=== PATIENT | female | born 2005 | race Caucasian/White ===

== ENCOUNTER 2025-05-17 18:51 | Emergency (ER) | payer SELFPAY ==
[2025-05-17 18:53] VITALS: BP 144/125; PULSE 86; RESP 14; TEMP 36.9; O2SAT 95; BMI 40.7
--- NOTE | 2025-05-17 19:31 | EDS_ITS ---
HPI History of Present Illness Chief Complaint: Syncope Detail of Chief Complaint: Passed out walking to restroom Informant: patient Onset/Context/Timing Onset: Today and Hours Context: Sudden Onset Timing: Intermittent Quality: Syncopal episode Location: Work Current Severity: Mild Maximum Severity: Severe Worsened by: Nothing per patient, little to no recall Relieved by: Not applicable Associated Symptoms Associated Symptoms: Nauseousness Narrative Narrative: Patient is a 19-year-old female. She presents after having syncope and collapse. She was at work. She works at [employer]. She states she is in air conditioned environment. She was sitting. She got up to use the restroom. She passed out. She states she woke up on the floor. She denies headache. Denies double vision blurred vision loss of vision. Eyes renal ears decreased hearing. No trouble speech or swallowing. Denies neck pain. She does complain of some vague chest discomfort. She also reports some mild shortness of breath. She denies rhinorrhea, congestion, postnasal drainage or sore throat. She denies cough. She denies history of VTE. She denies leg pain, swelling discoloration. She is on no hormonal therapy. She is not sexually active. She is on no control. Her last normal menses was 2 weeks ago. She denies dysuria, frequency, urgency or hematuria. She denies black or maroon-colored stool. She denies blood in her urine. She seems anxious. She was tearful when I entered the room. She is on a vitamin. She is on no other medicine. Prior similar symptoms: No Recent Illness/Hospitalization: No PFSH PFSH Medical History Asthma Medical History no medical history Home Medications ?Medication ?Instructions ?Recorded ?Last Taken ?Type mecobalamin (vitamin B12) 1,000 1,000 mcg PO DAILY 02/05 Unknown History mcg chewable tablet (B12 Active) Allergy/AdvReac Type Severity Reaction Status Date / Time No Known Allergies Allergy Verified 05/17/25 18:52 Social History Smoking Status: Never smoker ROS ROS ED Constitutional Constitutional ED: Denies chills, fever(s) or subjective Eyes Eyes: Denies blurry vision, change in vision or diplopia ENT ENT ED: Denies ear pain, rhinorrhea or sore throat Cardiovascular Cardiovascular: Denies chest pain, palpitations or racing heartbeat Respiratory/Chest Respiratory/Chest: Denies cough, dyspnea or dyspnea on exertion Gastrointestinal Gastrointestinal: Reports nausea; Denies abdominal pain, melena or vomiting Genitourinary Genitourinary ED: Denies dysuria, hematuria or urinary frequency Musculoskeletal Musculoskeletal: Denies arthralgias or myalgias Integumentary Denies Abrasions Neurologic Neurologic: Reports paresthesias RUE, RLE, LUE and LLE and other Details: There is no perioral numbness. ; Denies headache(s) Psychiatric Psychiatric: Reports anxiety; Denies depression Endocrine Endocrinology: Denies cold intolerance or heat intolerance Hematologic/Lymphatic Hematologic/Lymphatic: Reports systems reviewed and no addt'l complaints, except as documented EXAM Physical Exam Const Vital Signs: 05/17/25 18:53 05/17/25 19:12 05/17/25 19:46 Temperature 98.5 F Temperature Source Oral Pulse Rate 86 78 Pulse Rate [Lying] Pulse Rate [Sitting (for 1 minute prior to obtaining)] Pulse Rate [Standing (for 1 minute prior to obtaining)] Respiratory Rate 14 18 Respiratory Effort Normal Non-Labored Respiratory Pattern Normal Blood Pressure 144/125 H 131/72 H Blood Pressure [Lying] Blood Pressure [Sitting (for 1 minute prior to obtaining)] Blood Pressure [Standing (for 1 minute prior to obtaining)] Blood Pressure Mean 131 91 Blood Pressure Mean [Lying] Blood Pressure Mean [Sitting (for 1 minute prior to obtaining)] Blood Pressure Mean [Standing (for 1 minute prior to obtaining)] Pulse Ox 95 98 Oxygen Delivery Method Room Air 05/17/25 20:01 05/17/25 20:01 05/17/25 21:00 Temperature Temperature Source Pulse Rate 75 70 Pulse Rate [Lying] 75 Pulse Rate [Sitting (for 1 minute prior to obtaining)] 77 Pulse Rate [Standing (for 1 minute prior to obtaining)] 88 Respiratory Rate 15 18 Respiratory Effort Respiratory Pattern Blood Pressure 126/62 H 126/79 H Blood Pressure [Lying] 128/62 H Blood Pressure [Sitting (for 1 minute prior to obtaining)] 126/88 H Blood Pressure [Standing (for 1 minute prior to obtaining)] 132/82 H Blood Pressure Mean 83 94 Blood Pressure Mean [Lying] 84 Blood Pressure Mean [Sitting (for 1 minute prior to obtaining)] 100 Blood Pressure Mean [Standing (for 1 minute prior to obtaining)] 98 Pulse Ox 98 98 Oxygen Delivery Method Room Air Positive well nourished and well developed General Appearance ED: well developed and NAD; Negative for cyanotic, diaphoretic or pallor HEENT Reports moist mucous membranes HEENT Narrative: Head is atraumatic normocephalic. There is no clinical signs of a skull fracture. There is no septal deviation hematoma. No TMJ tenderness right or left. There is no dental trauma. Eyes PERRL and EOMs intact bilaterally Eyes Narrative: There is no subconjunctival hemorrhage. General Eye ED: Negative for pale conjunctiva or scleral icterus Neck no lymphadenopathy, supple and no JVD Neck Narrative: There is no midline posterior neck pain. Chest Wall palpation of chest normal Resp normal respiratory effort and clear to auscultation bilaterally Cardio regular rate, regular rhythm, S1 normal heart sound, S2 normal heart sound and no murmurs GI normal to inspection, nondistended, normoactive bowel sounds, non-tender, non- distended and no masses; Negative for hepatosplenomegaly Back/Spine Back/Spine Narrative: Inspection is normal. Extremity normal to inspection Extremity Narrative: There is no asymmetry, swelling, discoloration, leg vein distention, palpable cords times on the distribution deep venous system. Neuro oriented x3, CN's II-XII intact bilaterally and no sensory deficits noted Neuro Narrative: There is no dysmetria. There is no clonus. Sensorium / Orientation: alert Motor Exam: strength 5/5 throughout Psych Mood & Affect: anxious Skin no rashes or lesions noted, no wounds and skin turgor normal General Skin Exam: elasticity normal; Negative for jaundice or pallor MDM MDM MDM Narrative Medical decision making narrative: EKG was obtained because she complained of vague chest pain. Patient is PERC negative and Wells score is less than 3. History and physical is not consistent with aortic dissection. History is not consistent with pneumothorax, spontaneous. History is not consistent with infectious process. Will obtain EKG to assess for cardiac ischemia. Will place on monitor to assess for any dysrhythmia. Lab Data Attestation: I reviewed the patient's lab results. Lab results narrative: CBC is unremarkable. Electrolyte panel is normal. Labs: Laboratory Results - last 24 hr 05/17/25 18:58 WBC 8.2 RBC 5.16 Hgb 13.9 Hct 41.8 MCV 81.0 MCH 26.9 L MCHC 33.3 RDW Std Deviation 37.4 RDW Coeff of Nikolas 12.9 Plt Count 264 MPV 10.1 Sodium 140 Potassium 3.9 Chloride 105 Carbon Dioxide 23.0 Anion Gap 12 BUN 9 Creatinine 0.76 Estim Creat Clear Calc 147.81 Est GFR (MDRD) Non-Af 115 BUN/Creatinine Ratio 11.9 Glucose 91 Calcium 9.7 EKG Initial EKG: Attestation: I personally reviewed and interpreted this EKG as follows: Interpretation: Sinus Rhythm (Rate is 84. EKG is normal. [place] interval 246 ms. QRS duration 92 ms. QT duration 280 ms. [place] is normal) Treatment and Re-Evaluation :: Mookie deformity of her orthostatic vitals. My numbers are negative. She apparently swayed and was symptomatic. Comments:: Patient was watched on the monitor. She had no dysrhythmia, PACs or PVCs. Mother informing this has happened before. She is scheduled to see a senior business consultant. Discharge Plan Triage Chief Complaint: Syncope ED Provider: Geovanni Saucedo Dx/Rx/DC Orders Clinical Impression: Syncope and collapse, Orthostatic lightheadedness Prescriptions: No Action mecobalamin (vitamin B12) [B12 Active] 1,000 mcg tablet,chewable 1,000 mcg PO DAILY Stand Alone Forms: ED Work / School Excuse Primary Care Provider: Melony Doan Referrals: Melony Doan MD [Primary Care Provider] - 1 Week Print Language: [place] Disposition Disposition: Home, Self Care
--- NOTE | 2025-05-17 19:36 | EKG12_ITS ---
Test Reason : DYSRHYTHMIA Blood Pressure : */* mmHG Vent. Rate : 84 BPM Atrial Rate : 84 BPM P-R Int : 146 ms QRS Dur : 92 ms QT Int : 380 ms P-R-T Axes : 47 59 46 degrees QTcB Int : 449 ms Normal sinus rhythm Normal ECG Confirmed by JERMAINE WHITMAN, LINUS ([id number]), publishing editor JATIN JUAREZ ([id number]) on 05/19/2025 9:06:58 AM Referred By: Confirmed By: LINUS DEAN MD
[2025-05-17 19:46] VITALS: BP 131/72; PULSE 78; RESP 18; O2SAT 98
[2025-05-17 20:01] VITALS: BP 126/62; BP 126/88; BP 128/62; BP 132/82; PULSE 75; PULSE 77; PULSE 88; RESP 15; O2SAT 98
[2025-05-17 20:01] LABS: Hematocrit 41.8 % (37-47); Hemoglobin 13.9 g/dL (12.0-15.0); Mean Corp Hgb Conc 33.3 g/dL (32-36); Mean Corpuscular Volume 81.0 fL (81-99); Mean Platelet Vol. 10.1 fl (6.2-12.0); Platelet Count 264 K/mm3 (150-450); RBC Distribution Width CV 12.9 % (11.6-14.6); RBC Distribution Width SD 37.4 fl (35.1-43.9); Red Blood Count 5.16 M/mm3 (4.2-5.4); White Blood Count 8.2 K/mm3 (4.4-11.0)
[2025-05-17 20:31] LABS: Anion Gap 12 (5-15); BUN 9 mg/dL (4-19); BUN/Creat Ratio 11.9 RATIO (10-20); Calcium,Total 9.7 mg/dL (7.6-11.0); Carbon Dioxide 23.0 mmol/L (21.0-32.0); Chloride 105 mmol/L (98-108); Estimated Creatinine Clearance 147.81 ml/min (50-250); Glucose 91 mg/dL (70-99); Potassium 3.9 mmol/L (3.3-5.1)
[2025-05-17 21:00] VITALS: BP 126/79; PULSE 70; RESP 18; O2SAT 98
[2025-05-17 21:24] VITALS: BP 132/72; PULSE 78; RESP 16; TEMP 36.7; O2SAT 100
== END 2025-05-17 21:25 | disposition home or self-care (01) ==
PROVIDERS: Emergency Provider Emergency Medicine; PCP Family Medicine; Visit Provider Emergency Medicine
DX: R55 Syncope and collapse (principal); J45.909 Unspecified asthma, uncomplicated; R11.0 Nausea; R20.2 Paresthesia of skin; F41.9 Anxiety disorder, unspecified
CPT/HCPCS: 80048; 85027; 93005; 99285; A4216